=== PATIENT | male | born 1985 | race African-American/Black ===

== ENCOUNTER 2019-01-23 09:28 | Emergency (ER) | payer SELFPAY ==
[~2019-01-23] VITALS: Wt 87.0 kg
[2019-01-23 09:33] VITALS: BP 123/75; PULSE 63; RESP 18
--- NOTE | 2019-01-23 10:56 | ERD ---
ER Documentation Chief Complaint Chief Complaint LEFT THUMB SWELLING X 4 DAYS HPI Patient 33-year-old male presenting with left thumb pain x4 days. Patient states when he gets nervous he picks his skin and he noticed his thumb started hurting a few days ago and today became worse. ROS All systems reviewed and are negative except as per history of present illness. Medications Home Meds Active Scripts Cephalexin* (Keflex*) 500 Mg Capsule, 500 MG PO QID for 5 Days, CAP Prov:RAMONA HARRIS PA-C 01/23/19 Allergies Allergies: Coded Allergies: No Known Allergy (Unverified , 01/23/19) PMhx/Soc Medical and Surgical Hx: pt denies Medical Hx, pt denies Surgical Hx Hx Alcohol Use: No Hx Substance Use: No Hx Tobacco Use: No Smoking Status: Never smoker FmHx Family History: No diabetes, No coronary disease, No other Physical Exam Vitals Vital Signs Date Temp Pulse Resp B/P (MAP) Pulse Ox O2 O2 Flow FiO2 Time Delivery Rate 01/23/19 97.8 63 18 123/75 99 09:33 (91) Physical Exam Const: No acute distress Head: Atraumatic Resp: Clear to auscultation bilaterally Cardio: Regular rate and rhythm, no murmurs Ext: Left thumb erythematous and swollen and tender to touch GENERAL: The patient is well-appearing, well-nourished, in no acute distress NECK: C-spine is soft and supple. There is no meningismus. There is no cervical lymphadenopathy. CHEST: Clear to auscultation bilaterally. There are no rales, wheezes or rhonchi. HEART: Regular rate and rhythm. No murmurs, clicks, rubs or gallops. EXTREMITIES: Left thumb erythematous and swollen and tender to touch Equal pulses bilaterally. Results 24 hrs Current Medications Medications Dose Sig/[place] Start Time Status Last (Trade) Ordered Route PRN Stop Time Admin Dose Reason Admin Lidocaine 20 ml ONCE ONCE 01/23/19 DC (Xylocaine SC 11:00 1% (Mdv) 20 01/23/19 11:01 ml) Ceftriaxone 1 gm ONCE ONCE 01/23/19 DC 01/23/19 Sodium IM 12:00 11:51 (Rocephin) 01/23/19 12:01 Procedures/MDM My ER course; 1% lidocaine was used to anesthetize left thumb I&D procedure was done Patient was given Rocephin IM Patient's hand was bandaged up. Patient sent home with prescription for Keflex. Patient was advised to follow-up for wound check in 24 hours. MDM 33-year-old male presenting with left hand pain. Physical exam noted left thumb swelling with a fluctuant region just proximal to the nail. Patient has good pulse motor and sensation in the extremity. Patient denies any body chills fever or body aches. Patient denies any traumatic injury to the thumb. Patient stated it happened secondary to him picking at his nails. At this time I have low suspicion for osteomyelitis fractures ligament damage, or tenosynovitis. After I&D procedure patient's swelling reduced all pus was drained. Patient's thumb was bandaged with instructions to follow-up for wound check. Patient was given prescription for Keflex. Patient was consulted on side effects of antibiotics. Patient was advised that diarrhea is a normal side effect that he should not stop the antibiotics. Patient was advised the importance of following up with his primary care provider within 1 day regarding this visit. patient was advised that if symptoms worsen that this hospital does not have a hand specialist. Patient was advised that the closest facility with a hand specialist [facility]. Patient had no further questions upon discharge Disclaimer: Inadvertent spelling and grammatical errors are likely due to the ED HR/dictation software use and do not reflect on the overall quality of patient care. Also, please note that the electronic time recorded on this note does not reflect the actual time of the patient encounter. Departure Diagnosis: Primary Impression: Hand abscess Condition: Stable Referrals: [facility] RAMONA HARRIS PA-C January 23, 2019 10:56
[2019-01-23] MEDS ORDERED: LIDOCAINE 1% (MDV) 20 ML INJ SC ONE (11:00)
[2019-01-23] MEDS ORDERED: CEPH-443 PO (11:48)
[2019-01-23] MEDS ORDERED: CEFTRIAXONE 1 GM INJ IM ONE (12:00)
== END 2019-01-23 12:02 | disposition home or self-care (01) ==
LOC: FTE 09:28
DX: L02.512 Cutaneous abscess of left hand (principal)
CPT/HCPCS: 26010; 96372; 99284; J0696